=== PATIENT | female | born 1990 | race Caucasian/White ===

== ENCOUNTER 2017-10-01 20:25 | Emergency (ER) | payer MEDICAID ==
[2017-10-01 20:31] VITALS: BP 138/104; PULSE 100; RESP 16; TEMP 99.1; O2SAT 96
--- NOTE | 2017-10-01 20:54 | EDPHY ---
H & P Time Seen by Provider: 10/01/17 20:33 HPI/ROS: CHIEF COMPLAINT: Possible cyst on buttock HISTORY OF PRESENT ILLNESS: 27-year-old immunocompetent female with history of cutaneous MRSA complaining of progressively enlarging in tender area in the left perianal region for the past 1 week. No pain with defecation. No fever or chills. No blood or pus in stool. No fever or chills. No flu-like symptoms. PHYSICAL EXAM examination with female nursing hole at bedside (Prior to examination, patient consented to physical exam, hands were washed and my usual and customary physical exam procedures followed) 1) GENERAL: Well-developed, well-nourished, alert and oriented. Appears to be in no acute distress. 2) HEAD: Normocephalic 3) HEENT: sclera anicteric 4) LUNGS: Breathing comfortably. 5) : Perianal examination reveals erythema fluctuance at the 8 o'clock position. No active drainage. No extension of the perineum. Smoking Status: Light smoker Constitutional: Initial Vital Signs Temperature (C) 37.3 C 10/01/17 20:27 Heart Rate 100 10/01/17 20:27 Respiratory Rate 16 10/01/17 20:27 Blood Pressure 138/104 H 10/01/17 20:27 O2 Sat (%) 96 10/01/17 20:27 O2 Delivery Mode Room Air Allergies/Adverse Reactions: No Known Allergies Allergy (Unverified 03/25/16 21:47) Home Medications: Medication Instructions Recorded PRILOSEC 03/25/16 Cephalexin [Keflex] 500 mg PO TID 10 Days cap 10/01/17 Hydrocodone/APAP 5/325 [[place] 1 tab PO Q6 PRN #7 tab 10/01/17 5/325 (RX)] Sulfamethox/Tmp 800/160 mg 1 tab PO BID@1000,2200 10 Days tab 10/01/17 [Bactrim Ds] MDM/Departure - MDM Procedures: Procedure: Abscess drainage. The patient's abscess was located on the left perianal region. Indicated risks benefits discussed with patient and I obtained verbal consent from the patient to drain the abscess who was informed about the possibility of bleeding and pain. Area is prepped draped normal sterile fashion, anesthetized with 1% lidocaine with epinephrine. The abscess was incised with a 11and a moderate amount of purulent drainage was expressed. I irrigated the wound . The patient tolerated the procedure well. The procedure was performed by myself. ED Course/Re-evaluation: Doubt perirectal abscess. She had evidence of perianal abscess which was incised and drained. She will be started on Bactrim and Keflex. Given usual and customary abscess precautions instructions. She feels comfortable with this discharge plan.Care of patient under supervision of [secondary] supervising physician Dr hCi . - Depart Disposition: Home, Routine, Self-Care Clinical Impression: Perianal abscess Condition: Good Instructions: Cephalexin (By mouth), Sulfamethoxazole/Trimethoprim (By mouth), Hydrocodone/Acetaminophen (By mouth), Abscess (ED) Additional Instructions: Return to the ER if you develop pain with defecation, fevers, chills, flu-like symptoms or any other symptoms that concern you. Prescriptions: Cephalexin [Keflex] 500 mg PO TID 10 Days cap Hydrocodone/APAP 5/325 [[place] 5/325 (RX)] 1 tab PO Q6 PRN #7 tab PRN Reason: Pain, Severe Sulfamethox/Tmp 800/160 mg [Bactrim Ds] 1 tab PO BID@1000,2200 10 Days tab Referrals: Andres Dennis MD [Medical Doctor] - 2-3 days, call for appt.
[2017-10-01] MEDS ORDERED: SULFAMET/TMP DS PREPACK#2 BTL TAKEHOME ONE (20:56)
[2017-10-01] MEDS ORDERED: CEPHALEXIN 500MG PREPACK#4 BTL TAKEHOME ONE (20:56)
== END 2017-10-01 21:24 | disposition home or self-care (01) ==
PROC: 0D9QXZZ Drainage of Anus, External Approach (ICD-10-PCS; principal; 2017-10-01)
DX: K61.0 Anal abscess (principal); F17.200 Nicotine dependence, unspecified, uncomplicated

== ENCOUNTER 2017-10-04 13:26 | Emergency (ER) | payer MEDICAID ==
[2017-10-04 13:34] VITALS: RESP 18; TEMP 98.6
[2017-10-04] MEDS ORDERED: ONDANSETRON DISINTEGRATING 4 MG TAB PO ONE (15:00)
--- NOTE | 2017-10-04 15:06 | EDPHY ---
H & P Stated Complaint: cyst drained 10/02;GI upset/vomting after starting antibx;not better HPI/ROS: HPI CHIEF COMPLAINT: Nausea, vomiting, not feeling well HISTORY OF PRESENT ILLNESS: Patient is a 27-year-old female, she presents emergency room with nausea vomiting and GI upset after taking Keflex and Bactrim for a recent drained perirectal abscess. She was seen here on Monday or 3 days ago for a small perirectal abscess that was drained. She is placed on Keflex and Bactrim. She now returns to the emergency room stating that her stomach is upset and she is having nausea vomiting. She reports chills but no fever. Denies rigors. Denies chest pain or shortness of breath. Denies significant rectal pain. Past Medical History: Denies medical history Past Surgical History: Denies surgical history Social History: Denies daily use drugs alcohol tobacco products. Family History: Noncontributory ROS REVIEW OF SYSTEMS: A comprehensive 10 point review of systems is otherwise negative aside from elements mentioned in the history of present illness. Exam Constitutional appears well nontoxic, triage nursing summary reviewed, vital signs reviewed, awake/alert. Eyes normal conjunctivae and sclera, EOMI, PERRLA. HENT normal inspection, atraumatic, moist mucus membranes, no epistaxis, neck supple/ no meningismus, no raccoon eyes. Respiratory clear to auscultation bilaterally, normal breath sounds, no respiratory distress, no wheezing. Cardiovascular rate normal, regular rhythm, no murmur, no edema, distal pulses normal. Gastrointestinal soft, non-tender, no rebound, no guarding, normal bowel sounds, no distension, no pulsatile mass. Rectal exam: The 9 o'clock position of the perirectal region small stab incisions seen status post I and D with minimal induration or fluctuance. It is still draining. Cause in place. Minimal drainage. Gluteus bilaterally palpated and no significant induration or fluctuance or significant abscess on exam. Genitourinary no CVA tenderness. Musculoskeletal no midline vertebral tenderness, full range of motion, no calf swelling, no tenderness of extremities, no meningismus, good pulses, neurovascularly intact. Skin pink, warm, & dry, no rash, skin atraumatic. Neurologic awake, alert and oriented x 3, AAOx3, moves all 4 extremities equally, motor intact, sensory intact, CN II-XII intact, normal cerebellar, normal vision, normal speech. Psychiatric normal mood/affect. Heme/Lymph/Immune no lymphadenopathy. Differential Diagnosis: Includes but is not limited to in a particular order: Perirectal abscess, cellulitis, acute nausea vomiting from Bactrim and Keflex, gastritis, worsening infection Medical Decision Making: Plan for this patient IV establishment with IV fluid bolus, 4 mg IV Zofran for nausea, check basic blood work. Re-evaluate. Re-evaluation: 175: I did re-evaluate this patient this time she is resting comfortably. She feels much better. She received 2 L normal saline and Zofran. Her nausea is resolved she denies pain anywhere. I do recommend she continues taking the Keflex and Bactrim. Return precautions given about worsening pain or swelling or fever around her perirectal abscess. This was previously I and D and is still draining. I do not feel that she needs CT imaging at this time. She is nontoxic appearing. Vital signs are stable. Feels much better after IV fluids and nausea medicine. I will prescribe her Zofran in case she becomes nauseous after taking Keflex and Bactrim. Return precautions given. Blood work reviewed. Source: Patient - Personal History LMP (Females 10-55): 15-21 Days Ago Current Tetanus Diphtheria and Acellular Pertussis (TDAP): Yes - Medical/Surgical History Hx Asthma: Yes Hx Chronic Respiratory Disease: No Hx Diabetes: No Hx Cardiac Disease: No Hx Renal Disease: No Hx Cirrhosis: No Hx Alcoholism: No Hx HIV/AIDS: No Hx Splenectomy or Spleen Trauma: No Other PMH: PMHx: MRSA/ ortho. PSHx: wrist - Social History Smoking Status: Former smoker Constitutional: Initial Vital Signs Temperature (C) 37 C 10/04/17 13:30 Heart Rate 98 10/04/17 13:30 Respiratory Rate 18 10/04/17 13:30 Blood Pressure 156/101 H 10/04/17 13:30 O2 Sat (%) 97 10/04/17 13:30 O2 Delivery Mode Room Air Allergies/Adverse Reactions: No Known Allergies Allergy (Verified 10/04/17 13:30) Home Medications: Medication Instructions Recorded Cephalexin [Keflex] 500 mg PO TID 10 Days cap 10/01/17 Sulfamethox/Tmp 800/160 mg 1 tab PO BID@1000,2200 10 Days tab 10/01/17 [Bactrim Ds] Ondansetron HCl [Zofran] 4 mg PO Q4-6PRN PRN #10 tablet 10/04/17 Medical Decision Making - Data Points Laboratory Results: Laboratory Results 10/04/17 15:28 10/04/17 15:28 10/04/17 10/04/17 10/04/17 16:30 15:28 15:28 WBC RBC Hgb Hct MCV MCH MCHC RDW Plt Count MPV Neut % (Auto) Lymph % (Auto) [place] % (Auto) Eos % (Auto) Baso % (Auto) Nucleat RBC Rel Count Absolute Neuts (auto) Absolute Lymphs (auto) Absolute Monos (auto) Absolute Eos (auto) Absolute Basos (auto) Absolute Nucleated RBC Immature Gran % Immature Gran # Sodium 145 mEq/L H mEq/L (134-144) Potassium 4.6 mEq/L mEq/L (3.5-5.2) Chloride 108 mEq/L mEq/L (97-110) Carbon Dioxide 20 mEq/l L mEq/l (22-31) Anion Gap 17 mEq/L H mEq/L (8-16) BUN 7 mg/dL mg/dL (7-23) Creatinine 0.7 mg/dL mg/dL (0.6-1.0) Estimated GFR > 60 Glucose 95 mg/dL mg/dL (70-100) Calcium 9.6 mg/dL mg/dL (8.5-10.4) Beta HCG, Qual NEGATIVE Urine Color YELLOW Urine Appearance CLEAR Urine pH 6.0 (5.0-7.5) Ur Specific [place] 1.015 (1.002-1.030) Urine Protein NEGATIVE (NEGATIVE) Urine Ketones NEGATIVE (NEGATIVE) Urine Blood NEGATIVE (NEGATIVE) Urine Nitrate NEGATIVE (NEGATIVE) Urine Bilirubin NEGATIVE (NEGATIVE) Urine Urobilinogen NEGATIVE EU EU (0.2-1.0) Ur Leukocyte Esterase NEGATIVE (NEGATIVE) Urine Glucose NEGATIVE (NEGATIVE) 10/04/17 15:28 WBC 10.58 10^3/uL H 10^3/uL (3.80-9.50) RBC 4.92 10^6/uL 10^6/uL (4.18-5.33) Hgb 14.6 g/dL g/dL (12.6-16.3) Hct 42.4 % % (38.0-47.0) MCV 86.2 fL fL (81.5-99.8) MCH 29.7 pg pg (27.9-34.1) MCHC 34.4 g/dL g/dL (32.4-36.7) RDW 12.8 % % (11.5-15.2) Plt Count 316 10^3/uL 10^3/uL (150-400) MPV 9.5 fL fL (8.7-11.7) Neut % (Auto) 74.9 % H % (39.3-74.2) Lymph % (Auto) 18.2 % % (15.0-45.0) [place] % (Auto) 4.2 % L % (4.5-13.0) Eos % (Auto) 1.7 % % (0.6-7.6) Baso % (Auto) 0.6 % % (0.3-1.7) Nucleat RBC Rel Count 0.0 % % (0.0-0.2) Absolute Neuts (auto) 7.93 10^3/uL H 10^3/uL (1.70-6.50) Absolute Lymphs (auto) 1.93 10^3/uL 10^3/uL (1.00-3.00) Absolute Monos (auto) 0.44 10^3/uL 10^3/uL (0.30-0.80) Absolute Eos (auto) 0.18 10^3/uL 10^3/uL (0.03-0.40) Absolute Basos (auto) 0.06 10^3/uL 10^3/uL (0.02-0.10) Absolute Nucleated RBC 0.00 10^3/uL 10^3/uL (0-0.01) Immature Gran % 0.4 % % (0.0-1.1) Immature Gran # 0.04 10^3/uL 10^3/uL (0.00-0.10) Sodium Potassium Chloride Carbon Dioxide Anion Gap BUN Creatinine Estimated GFR Glucose Calcium Beta HCG, Qual Urine Color Urine Appearance Urine pH Ur Specific [place] Urine Protein Urine Ketones Urine Blood Urine Nitrate Urine Bilirubin Urine Urobilinogen Ur Leukocyte Esterase Urine Glucose Medications Given: Discontinued Medications Sodium Chloride (Ns) 1,000 mls @ 0 mls/hr IV EDNOW ONE; Wide Open PRN Reason: Protocol Stop: 10/04/17 15:12 Last Admin: 10/04/17 15:15 Dose: 1,000 mls Ondansetron HCl (Zofran Odt) 4 mg PO EDNOW ONE Stop: 10/04/17 15:01 Last Admin: 10/04/17 15:01 Dose: 4 mg Ondansetron HCl (Zofran) 4 mg IVP EDNOW ONE Stop: 10/04/17 15:12 Last Admin: 10/04/17 15:21 Dose: Not Given Departure - Departure Disposition: Home, Routine, Self-Care Clinical Impression: Nausea and vomiting Qualifiers: Vomiting type: unspecified Vomiting Intractability: intractable Qualified Code( s): R11.2 - Nausea with vomiting, unspecified Condition: Good Instructions: Acute Nausea and Vomiting (ED) Additional Instructions: 1. Return emergency room if he develops worsening abdominal pain nausea vomiting fever questions or concerns. 2. Please complete her antibiotics. 3. Zofran if he become nauseous. 4. If develops fever worsening rectal pain please be re-evaluated. Referrals: NONE *PRIMARY CARE P,. [Primary Care Provider] - As per Instructions Prescriptions: Ondansetron HCl [Zofran] 4 mg PO Q4-6PRN PRN #10 tablet PRN Reason: Nausea/Vomiting, Use 1st
[2017-10-04] MEDS ORDERED: NS 1,000 ML IV ONE ×2 (15:11→16:36)
[2017-10-04] MEDS ORDERED: ONDANSETRON 4 MG/2 ML VIAL IVP ONE (15:11)
[2017-10-04 15:39] LABS: % IMMATURE GRANULYOCYTES 0.4 % (0.0-1.1); ABSOLUTE IMMATURE GRANULOCYTES 0.04 10^3/uL (0.00-0.10); ADD DIFF? NO; ADD MORPH? NO; ADD SCAN? NO; ATYPICAL LYMPHOCYTE FLAG 10 (0-99); FRAGMENT RBC FLAG 0 (0-99); HEMATOCRIT 42.4 % (38.0-47.0); HEMOGLOBIN 14.6 g/dL (12.6-16.3); LEFT SHIFT FLG 0 (0-99); LIPEMIA HEMOLYSIS FLAG 90 (0-99); MEAN CELL HEMOGLOBIN 29.7 pg (27.9-34.1); MEAN CELL HEMOGLOBIN CONCENTR. 34.4 g/dL (32.4-36.7); MEAN CELL VOLUME 86.2 fL (81.5-99.8); MEAN PLATELET VOLUME 9.5 fL (8.7-11.7); PLATELET CLUMPS FLAG 10 (0-99); PLATELET COUNT 316 10^3/uL (150-400); RED BLOOD CELL COUNT 4.92 10^6/uL (4.18-5.33); RED CELL DISTRIBUTION WIDTH 12.8 % (11.5-15.2)
[2017-10-04 16:51] LABS: ANION GAP 17 mEq/L (8-16); CALCIUM 9.6 mg/dL (8.5-10.4); CARBON DIOXIDE 20 mEq/l (22-31); CHLORIDE 108 mEq/L (97-110); CREATININE 0.7 mg/dL (0.6-1.0); GLOMERULAR FILTRATION RATE > 60; GLUCOSE 95 mg/dL (70-100); POTASSIUM 4.6 mEq/L (3.5-5.2); SODIUM 145 mEq/L (134-144)
[2017-10-04 17:13] LABS: COLOR YELLOW; LEUKOCYTE ESTERASE,URINE NEGATIVE (NEGATIVE); NITRITE,URINE NEGATIVE (NEGATIVE)
[2017-10-04 18:14] VITALS: BP 148/108; PULSE 82; O2SAT 92
== END 2017-10-04 18:14 | disposition home or self-care (01) ==
DX: R11.2 Nausea with vomiting, unspecified (principal); E86.9 Volume depletion, unspecified; J45.909 Unspecified asthma, uncomplicated; Z87.891 Personal history of nicotine dependence